=== PATIENT | female | born 1990 | race Caucasian/White ===

== ENCOUNTER 2024-02-08 08:53 | Emergency (ER) | payer BC, SELFPAY ==
[2024-02-08 08:59] VITALS: BP 124/85
--- NOTE | 2024-02-08 09:21 | ED.GENMED ---
History of Present Illness
General
Chief Complaint: Abdominal Symptoms
Time Seen by Provider: 02/08/24 09:17
History of Present Illness
History of Present Illness:
HPI: Patient comes in from urgent care for further evaluation. She has been having nausea, vomiting, and diarrhea for the past week. This is associated with abdominal cramping. She took a test this morning and it was negative however
she does state that the cramping and nausea and vomiting are similar to the symptoms she felt when she was brought however she did not have diarrhea during the .
EXAM:
GENERAL: Well appearing in mild distress
HEENT: Moist oral mucosa
CARDIOVASCULAR: No murmurs, borderline tachycardic heart rate, regular rhythm, No chest wall tenderness
PULMONARY: No respiratory distress, breath sounds are clear and equal
ABDOMEN: Soft with no peritoneal signs, minimal diffuse tenderness
NEUROLOGIC: Excellent strength all extremities, no coordination deficits
PSYCHIATRIC: Appropriate mental status, normal insight and judgement
EXTREMITIES: Nontender, no edema, moves all extremities equally
SKIN: No rash, no lesions
TIME OF INITIAL ENCOUNTER: 9:25 AM
NUMBER AND COMPLEXITY OF PROBLEMS ADDRESSED AT THE ENCOUNTER
� Chronic conditions affecting care: Denies any significant past medical history
� Acute Exacerbation and/or Progression of Chronic Illness: This is an acute problem
� Differential Diagnosis includes: Viral syndrome, foodborne illness, dehydration, CHRISTINE
AMOUNT AND/OR COMPLEXITY OF DATA TO BE REVIEWED AND ANALYZED
� I performed an independent evaluation of and my interpretation is:
EKG:
CT:
X-rays:
Laboratory Studies: White count 5.9, hemoglobin 16.7, hCG negative, 3+ ketones, chemistries unremarkable
Other:
� Review of other/old records: I looked through [employer] for old records�there are encounters related to but no other significant records available for review
� Clinical information was obtained by an independent historian: None needed
� Prescriptions/Medications Considered but not given:
� Further testing considered but not performed: Considered CT imaging of the abdomen pelvis however the patient has a normal white count, has nausea and diarrhea together, and symptoms significant proved with Zofran and Toradol.
RISK OF COMPLICATIONS AND/OR MORBIDITY OR MORTALITY OF PATIENT MANAGEMENT
� Social determinants of health affecting care: Lives at home
� Discussion with other providers:
� Escalation of care including admission/observation vs risk of discharge considered: The patient was given 2 L of IV fluids as lab work suggest some degree of dehydration (high hemoglobin, low bicarb, ketonuria). She was given
IV Zofran. She noted rather significant cramping but after Toradol was given, she felt markedly improved.
Phy Exam
Physical Exam
Physical Exam:
See HPI
Course
Orders/Labs/Results
Orders:
Orders
02/08/24 09:22
0.9% Sodium Chloride 1000 ml [Nss] 1,000 ml IV BOLUS
Test Result ONCE
02/08/24 09:30
0.9% Sodium Chloride 1000 ml [Nss] 1,000 ml IV BOLUS
Ondansetron Injectable [Zofran] 4 mg IV NOW STA
02/08/24 09:50
Complete Blood Count/With Diff Urgent
Comprehensive Metabolic Panel Urgent
HCG, Serum Qualitative Screen Urgent
Lipase Urgent
Magnesium Urgent
Urinalysis Reflex To Culture Urgent
Date Specimen was Collected: 02/08/24
Time Specimen was Collected: 09:39
Urine Microscopic Reflex Cult Urgent
02/08/24 11:23
STOOL [C difficile Antigen & Toxins] Urgent
NOBLE Source: Feces/Stool
Specimen Description:
Date Specimen was Collected: 02/08/24
Time Specimen was Collected: 11:12
Stool Culture Urgent
NOBLE Source: Feces/Stool
Specimen Description:
Date Specimen was Collected: 02/08/24
Time Specimen was Collected: 11:12
02/08/24 12:07
Ketorolac [Toradol] 15 mg IV NOW STA
02/08/24 13:12
Ondansetron Injectable [Zofran] 4 mg IV NOW STA
Abnormal Lab Results
02/08/24
09:50
Hgb 16.7 H g/dL
(12.0-16.0)
Hct 48.2 H %
(37.0-47.0)
MCH 31.3 H pg
(27.0-31.0)
Absolute Lymphs (auto) 1.1 L 10^3/uL
(1.2-3.4)
Lymphocytes % 18.0 L %
(20.5-51.1)
Carbon Dioxide 19 L mmol/L
(22-30)
Urine Ketones 3+ A
(Negative)
Ur Occult Blood Reflex 1+ A
(Negative)
Urine RBC 3-6 A /HPF
(0-2)
Urine Bacteria (Reflex) Few A
(Negative)
02/08/24 09:50
02/08/24 09:50
Vital Signs
Initial and Last Documented VS:
Initial Vital Signs
Temp Pulse Resp BP Pulse Ox
97.8 F 114 18 124/85 100
02/08/24 08:59 02/08/24 08:59 02/08/24 08:59 02/08/24 08:59 02/08/24 08:59
Last Documented Vital Signs
Temp Pulse Resp BP Pulse Ox
97.8 F 66 16 97/66 100
02/08/24 08:59 02/08/24 11:36 02/08/24 11:36 02/08/24 11:36 02/08/24 11:36
*Critical Care Note
Total Time (30-74mins, 75-104mins- exclusive of procedures): Not Applicable
ED Attending Note
-
Portions of this chart may have been created with voice recognition software.� Occasional wrong word or��sound alike� substitutions may have occurred due to the inherent limitations of voice recognition software.
Discharge Plan
Departure
Patient Disposition: Home (Routine Discharge)
Date of Disposition: 02/08/24
Time of Disposition: 13:10
Patient with high blood pressure during this ER visit?: Yes
Discharge Problem:
Nausea vomiting and diarrhea
Instructions: Diarrhea in teens and adults, Dehydration, Adult (DC), Nausea and Vomiting, Adult (DC)
Prescriptions:
New
ondansetron HCl 4 mg tablet
4 mg PO Q8H PRN (Reason: nausea and vomiting) Qty: 14 0RF
No Action
vit-iron fum-folic ac 1 EACH tablet
1 ea PO DAILY
acetaminophen 325 mg Tablet
650 mg PO Q4HPRN PRN (Reason: mild pain) Qty: 0 0RF
sennosides-docusate sodium [Senna Plus] 8.6-50 mg Tablet
1 tab PO DAILYPRN PRN (Reason: constipation) Qty: 0 0RF
ibuprofen 600 mg Tablet
600 mg PO Q6HPRN PRN (Reason: moderate pain/cramps) Qty: 45 0RF
Referrals:
NONE,* [Family Provider] -
Activity Restrictions/Additional Instructions:
Your white blood cell count is normal. Your hemoglobin is slightly high which is suggestive of dehydration. Your bicarb is low and you have ketones in your urine�these also suggest dehydration. There is no sign of urinary tract infection. Your
kidney function is normal. Liver and pancreas numbers are normal. testing is negative. We gave 2 L of IV fluid and also gave IV Zofran. I am sending a prescription to your pharmacy. I also give Toradol prior to discharge which is a
medicine like Motrin. Please follow-up with your primary care doctor. I recommend 3 [id number] ibuprofen (Motrin) every 8 hours with food for a few days. C. difficile test is negative. Additional stool testing is pending. You will be
notified of these test only if abnormal. Return here if worse.
Interventions
Interventions:
*Risk Screen - Suicide Last Done: 02/08/24 09:52
*General Assessment Last Done: 02/08/24 08:59
*Neglect/Abuse Screening Last Done: 02/08/24 08:59
ED- Fall Risk Assessment Last Done: 02/08/24 10:04
BH-Lnrzew-Vjnykwqfag Assessment Last Done: 02/08/24 10:04
Discharge Date and Time
Print Language: URUGUAYAN
[2024-02-08 09:39] VITALS: BMI 25.9
[2024-02-08] MEDS: ZOFRAN 4 MG IV (09:51)
[2024-02-08] MEDS: NSS 1000 IV ×2 (09:51→09:52)
[2024-02-08 10:14] LABS: Urine Albumin Negative (Neg - Trace); Urine Bilirubin Negative (Negative); Urine Character Clear (Clear); Urine Color Yellow; Urine Glucose Negative (Negative); Urine Ketone 3+ (Negative); Urine Leukocyte Negative (Negative); Urine Nitrite Negative (Negative); Urine Occult Blood 1+ (Negative); Urine Urobilinogen Negative (Neg - 1+)
[2024-02-08 10:16] LABS: % Basophils 0.5 % (0-2); % Eosinophils 4.1 % (0-6); % Immature Granulocytes 0.2 % (0-0.5); % Neutrophils 70.2 % (42.2-75.2); Absolute Eosinophils 0.2 10^3/uL (0-0.7); Absolute Lymphocytes 1.1 10^3/uL (1.2-3.4); Absolute Monocytes 0.4 10^3/uL (0.1-0.6); Absolute Neutrophils 4.1 10^3/uL (1.4-6.5); Hematocrit 48.2 % (37.0-47.0); Hemoglobin 16.7 g/dL (12.0-16.0); Mean Corp Hgb Conc. 34.6 g/dL (33.0-37.0); Mean Corpuscular Hgb 31.3 pg (27.0-31.0); Mean Corpuscular Volume 90.4 fL (81.0-99.0); Mean Platelet Volume 9.3 fL (7.4-10.4); Nucleated Red Blood Cells % 0 %; Platelet Count 224 10^3/uL (130-400); Red Blood Cell Count 5.33 10^6/uL (4.20-5.40); White Blood Cell Count 5.9 10^3/uL (4.8-10.8)
[2024-02-08 10:32] LABS: HCG, Serum Qualitative Screen Negative
[2024-02-08 10:35] LABS: ALT (SGPT) 15 U/L (0-35); AST (SGOT) 20 U/L (14-36); Alkaline Phosphatase 56 U/L (38-126); Blood Urea Nitrogen 14 mg/dl (7-17); Carbon Dioxide 19 mmol/L (22-30); Chloride 106 mmol/L (98-107); Estimated Creatinine Clearance 112 ml/min; Glucose 95 mg/dl (70-99); Lipase 98 U/L (23-300); Magnesium 1.9 mg/dl (1.6-2.3); Potassium 4.3 mmol/L (3.5-5.1); Sodium 141 mmol/L (135-145); Total Bilirubin 0.4 mg/dl (0.2-1.3); Total Protein 6.5 g/dl (6.3-8.2); eGFR > 60.00
[2024-02-08 10:38] LABS: Urine Bacteria Few (Negative); Urine White Cell 0-2 /HPF (0-5)
[2024-02-08 11:36] VITALS: BP 97/66
[2024-02-08] MEDS: TORADOL 15 MG IV (12:17)
[2024-02-08 13:41] VITALS: BP 101/68
== END 2024-02-08 13:43 | disposition home or self-care (01) ==
LOC: EMR 08:53
PROVIDERS: EMERGENCY PHYSICIAN Emergency Medicine
DX: R11.2 Nausea with vomiting, unspecified (principal); R19.7 Diarrhea, unspecified; R10.9 Unspecified abdominal pain
CPT/HCPCS: 96374; 96375; 96376; 96361; 99284; 80053; 81003; 81015; 83690; 83735; 84703; 85025; 87045; 87046; 87324; 87427; 87449

== ENCOUNTER → 2024-08-26 14:06 | Outpatient (REF) | payer BC, SELFPAY | LOC: PNTC 14:06 | PROVIDERS: ATTENDING PHYSICIAN Obstetrics & Gynecology | DX: Z36.0 Encounter for antenatal screening for chromosomal anomalies (principal); Z36.82 Encounter for antenatal screening for nuchal translucency | CPT/HCPCS: 76801; 76802; 76813; 76814 ==

== ENCOUNTER → 2024-09-16 13:31 | Outpatient (REF) | payer BC, SELFPAY | LOC: PNTC 13:31 | PROVIDERS: ATTENDING PHYSICIAN Obstetrics & Gynecology | DX: Z36.0 Encounter for antenatal screening for chromosomal anomalies (principal) | CPT/HCPCS: 76805; 76810 ==

== ENCOUNTER → 2024-10-16 08:53 | Outpatient (REF) | payer BC, SELFPAY | LOC: PNTC 08:53 | PROVIDERS: ATTENDING PHYSICIAN Obstetrics & Gynecology | DX: O30.049 Twin pregnancy, dichorionic/diamniotic, unspecified trimester (principal) | CPT/HCPCS: 76811; 76812; 76817 ==

== ENCOUNTER → 2024-11-12 13:31 | Outpatient (REF) | payer BC, SELFPAY | LOC: PNTC 13:31 | PROVIDERS: ATTENDING PHYSICIAN Obstetrics & Gynecology | DX: O30.049 Twin pregnancy, dichorionic/diamniotic, unspecified trimester (principal) | CPT/HCPCS: 76816 ==

== ENCOUNTER → 2024-12-09 13:54 | Outpatient (REF) | payer BC, SELFPAY | LOC: PNTC 13:54 | PROVIDERS: ATTENDING PHYSICIAN Obstetrics & Gynecology | DX: O30.049 Twin pregnancy, dichorionic/diamniotic, unspecified trimester (principal) | CPT/HCPCS: 76816 ==

== ENCOUNTER → 2025-01-06 13:47 | Outpatient (REF) | payer BC, SELFPAY | LOC: PNTC 13:47 | PROVIDERS: ATTENDING PHYSICIAN Obstetrics & Gynecology | DX: O30.049 Twin pregnancy, dichorionic/diamniotic, unspecified trimester (principal) | CPT/HCPCS: 59025; 76816 ==

== ENCOUNTER → 2025-01-13 13:50 | Outpatient (REF) | payer BC, SELFPAY | LOC: PNTC 13:50 | PROVIDERS: ATTENDING PHYSICIAN Obstetrics & Gynecology | DX: O30.049 Twin pregnancy, dichorionic/diamniotic, unspecified trimester (principal) | CPT/HCPCS: 76815 ==

== ENCOUNTER → 2025-01-21 14:04 | Outpatient (REF) | payer BC, SELFPAY | LOC: PNTC 14:04 | PROVIDERS: ATTENDING PHYSICIAN Obstetrics & Gynecology | DX: O30.049 Twin pregnancy, dichorionic/diamniotic, unspecified trimester (principal) | CPT/HCPCS: 59025; 76815 ==

== ENCOUNTER → 2025-01-28 13:54 | Outpatient (REF) | payer BC, SELFPAY | LOC: PNTC 13:54 | PROVIDERS: ATTENDING PHYSICIAN Obstetrics & Gynecology | DX: O30.043 Twin pregnancy, dichorionic/diamniotic, third trimester (principal) | CPT/HCPCS: 59025; 76815 ==

== ENCOUNTER → 2025-02-03 13:52 | Outpatient (REF) | payer BC, SELFPAY | LOC: PNTC 13:52 | PROVIDERS: ATTENDING PHYSICIAN Obstetrics & Gynecology | DX: O30.049 Twin pregnancy, dichorionic/diamniotic, unspecified trimester (principal) | CPT/HCPCS: 59025; 76816 ==

== ENCOUNTER → 2025-02-10 14:00 | Outpatient (REF) | payer BC, SELFPAY | LOC: PNTC 14:00 | PROVIDERS: ATTENDING PHYSICIAN Obstetrics & Gynecology | DX: O30.049 Twin pregnancy, dichorionic/diamniotic, unspecified trimester (principal) | CPT/HCPCS: 36415; 59025; 76815 ==

== ENCOUNTER 2025-02-17 08:32 | Inpatient (IN) | payer BC, SELFPAY ==
[2025-02-17 09:06] VITALS: BP 120/75; BMI 33.7
[2025-02-17] MEDS: LR 1000 IV ×2 (09:26→13:26)
[2025-02-17] MEDS: TYLENOL 975 MG PO (09:27)
[2025-02-17] MEDS: ANCEF 10 IV (09:27)
[2025-02-17] MEDS: BICITRA 30 ML PO (09:28)
[2025-02-17 09:34] LABS: Hematocrit 33.4 % (37.0-47.0); Hemoglobin 11.4 g/dL (12.0-16.0); Mean Corp Hgb Conc. 34.1 g/dL (33.0-37.0); Mean Corpuscular Volume 91.5 fL (81.0-99.0); Platelet Count 140 10^3/uL (130-400); Red Cell Dist. Width 14.6 % (11.5-14.5)
[2025-02-17] MEDS: MORPHINE SULFATE 2 MG IV ×2 (12:12→12:54)
[2025-02-17 14:01] LABS: Hematocrit 31.3 % (37.0-47.0); Hemoglobin 10.2 g/dL (12.0-16.0); Mean Corp Hgb Conc. 32.6 g/dL (33.0-37.0); Mean Corpuscular Volume 91.0 fL (81.0-99.0); Nucleated Red Blood Cells % 0 %; Platelet Count 147 10^3/uL (130-400); Red Cell Dist. Width 14.5 % (11.5-14.5)
[2025-02-17] MEDS: TORADOL 15 MG IV ×2 (14:26→19:41)
[2025-02-17] MEDS: COLACE 100 MG PO (19:41)
[2025-02-17] MEDS: FLUSH (NSS) 3 FLUSH IV (19:41)
[2025-02-17] MEDS: MYLICON 80 MG PO (20:40)
[2025-02-18] MEDS: TYLENOL 650 MG PO ×4 (00:15→21:13)
[2025-02-18] MEDS: TORADOL 15 MG IV ×2 (02:09→08:28)
[2025-02-18] MEDS: FLUSH (NSS) 3 FLUSH IV (02:10)
[2025-02-18 06:33] LABS: Hematocrit 25.3 % (37.0-47.0); Hemoglobin 8.4 g/dL (12.0-16.0); Mean Corp Hgb Conc. 33.2 g/dL (33.0-37.0); Mean Corpuscular Volume 91.7 fL (81.0-99.0); Platelet Count 149 10^3/uL (130-400); Red Cell Dist. Width 14.6 % (11.5-14.5)
--- NOTE | 2025-02-18 07:40 | W.PN.ANS.POP ---
Anesthesia Post Operative
- Anesthesia Post Op Note
Vital Signs Stable-See Nursing Note: Yes
Airway Patent: Yes
Adequate Pain Control: Yes
Change in Mental Status: No
Current Postoperative Nausea & Vomiting: No
Anesthesia Complications: No
General Anesthetic Recall: No
Unplanned Admission: No
Post Op Hydration Adequate: Yes
[2025-02-18] MEDS: COLACE 100 MG PO ×2 (08:28→21:13)
[2025-02-18] MEDS: MYLICON 80 MG PO ×3 (08:28→21:13)
[2025-02-18] MEDS: FEOSOL 325 MG PO (08:28)
[2025-02-18] MEDS: PRENATAL PLUS 1 TABLET PO (08:28)
[2025-02-18] MEDS: MOTRIN 600 MG PO ×2 (14:26→21:13)
[2025-02-18 15:38] LABS: Syphilis/T. pallidum Ab Reflex Negative (Negative)
[2025-02-19] MEDS: TYLENOL 650 MG PO ×3 (01:14→20:40)
[2025-02-19] MEDS: MOTRIN 600 MG PO ×3 (04:59→20:40)
[2025-02-19] MEDS: PRENATAL PLUS 1 TABLET PO (08:24)
[2025-02-19] MEDS: COLACE 100 MG PO ×2 (08:24→20:36)
[2025-02-19] MEDS: MYLICON 80 MG PO (08:25)
[2025-02-19] MEDS: FEOSOL 325 MG PO (08:25)
[2025-02-20] MEDS: MOTRIN 600 MG PO ×2 (02:43→08:34)
[2025-02-20] MEDS: FEOSOL 325 MG PO (08:33)
[2025-02-20] MEDS: COLACE 100 MG PO (08:33)
[2025-02-20] MEDS: PRENATAL PLUS 1 TABLET PO (08:34)
[2025-02-20] MEDS: MYLICON 80 MG PO (08:34)
--- NOTE | 2025-02-20 10:17 | W.DS.TRANS ---
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
-
Discharge Instructions:
Discharge Diagnosis/Procedures primary cs twins
Instructions:
Stand-Alone Forms: LDRP Delivery
Changes to Home Medications: No
Discharge Medications:
DC Medications w/original date entered in [facility]
Pepcid 10 mg PO ONCE 02/17/25
iron 40 mg capsule 40 mg PO DAILY 02/17/25
prenat.vits,abdullahi,sdq-eizs-mvjxy 1 tab PO DAILY 02/17/25
ibuprofen 600 mg tablet 600 mg PO Q6HPRN PRN cramps #90 tabs 02/20/25
Home Medication Changes
Pending Results: No
Total time spent discharging patient (in min): 15
== END 2025-02-20 11:17 | disposition home or self-care (01) | DRG 785 ==
LOC: LDRP 08:32
PROVIDERS: ADMITTING PHYSICIAN Obstetrics & Gynecology; FAMILY PHYSICIAN Family Medicine
PROC: 0UT70ZZ Resection of Bilateral Fallopian Tubes, Open Approach (ICD-10-PCS; 2025-02-17)
PROC: 10D00Z1 Extraction of Products of Conception, Low, Open Approach (ICD-10-PCS; 2025-02-17)
DX: O32.1XX1 Maternal care for breech presentation, fetus 1 (principal); O30.043 Twin pregnancy, dichorionic/diamniotic, third trimester; Z3A.38 38 weeks gestation of pregnancy; Z37.2 Twins, both liveborn; O69.89X0 Labor and delivery complicated by other cord complications, not applicable or unspecified; O99.824 Streptococcus B carrier state complicating childbirth
CPT/HCPCS: 36415; 58605; 85025; 85027; 86780; 86850; 86900; 86901; 88302; 88307